=== PATIENT | female | born 2000 | race Two or more races ===

== ENCOUNTER 2025-05-30 18:35 | Emergency (ER) | payer OTHER ==
[~2025-05-30] VITALS: Ht 165.1 cm; Wt 72.7 kg
--- NOTE | 2025-05-30 19:42 | ED.PDOC ---
History of Present Illness HPI Comments 24-year-old female, with no significant medical history, presents spouse and child with multiple complaints. Primary chief complaint is for right breast lump, with the associated sharp pain, which she has been having for over 1 week, following initial, unprovoked and atraumatic onset. Also endorses on having congestion for over the past 2 weeks, left eye redness for one-week, and fever, chills, and body aches onset today. Only medication she takes, currently, are iron supplements. No endorsement of any recent injuries, travel, sick contact, or further pertinent history events. Denial of any wound abscess, discharge, or further associated symptoms. REVIEW OF SYSTEMS: General: Fever, chills, body aches, no fatigue HEENT: Congestion. Left eye redness. No sore throat, no earache, no neck pain. Cardiac: No chest pain. No palpitations. Lungs: No shortness of breath, no cough. GI: No nausea, no vomiting, no diarrhea, no constipation, no abdominal pain : No dysuria, frequency, or urgency. No hematuria. Musculoskeletal: Body aches. No joint pain , no joint swelling, no extremity edema. Skin: No rash, no itching. Neuro: No headache, no dizziness, no weakness REVIEW OF SYSTEMS: General: No fever, no chills, or fatigue HEENT: No sore throat, no earache, no congestion, no neck pain. Cardiac: No chest pain. No palpitations. Lungs: No shortness of breath, no cough. GI: No nausea, no vomiting, no diarrhea, no constipation, no abdominal pain : No dysuria, frequency, or urgency. No hematuria. Musculoskeletal: No joint pain , no joint swelling, no extremity edema. Skin: Right breast warmth and tender; right breast is more firmer compared to the left breast, with no palpable abscess. No rash, no itching. Neuro: No headache, no dizziness, no weakness Chief Complaint: Breast pain Time Seen by MD: 19:00 Reviewed Notes: Nurses Notes, Medications, Allergies Allergies: Coded Allergies: Amoxicillin (Verified Allergy, Unknown, 05/30/25) Clavulanic Acid (Verified Allergy, Unknown, 05/30/25) Information Source: Patient Mode of Arrival: Ambulatory Severity: Moderate Past Medical History PAST MEDICAL HISTORY: Denies Surgical History: Denies all surgeries BUNDLE HELPER History: No Pertinent BUNDLE HELPER History Family History Family History: Unknown Social History Smoker: Non-Smoker Alcohol: Denies ETOH Use Drugs: Denies Drug Use Lives In: Home Was a procedure done? Was a procedure done?: No Differential Dx Considerations may include: Viral illness, pharyngitis, otitis media, bacteremia, pneumonia, UTI, meningitis, sepsis, abscess, cellulitis, dermatitis, conjunctivitis, other X-Ray, Labs, Meds, VS Vital Signs Date Time Temp Pulse Resp B/P (MAP) Pulse Ox O2 Delivery O2 Flow Rate FiO2 05/30/25 21:12 100.0 110 14 108/63 (78) 95 100.0 05/30/25 20:51 100.9 05/30/25 19:55 101.4 05/30/25 19:49 101.4 117 19 118/97 (104) 97 101.4 05/30/25 19:49 117 19 97 Room Air 05/30/25 18:36 99.7 109 16 133/78 98 99.7 Lab Test 05/30/25 19:27 05/30/25 19:20 05/30/25 00:00 Range/Units White Blood Count 7.8 4.4-10.8 10^3/uL Red Blood Count 4.63 4.0-5.20 10^6/uL Hemoglobin 12.8 12.2-16.2 g/dL Hematocrit 37.9 36.0-46.0 % Mean Corpuscular Volume 81.8 80.0-100.0 fL Mean Corpuscular Hemoglobin 27.6 L 28.0-32.0 pg Mean Corpuscular Hemoglobin Concent 33.7 32.0-36.0 g/dL Red Cell Distribution Width 15.2 H 11.8-14.3 % Platelet Count 321 140-450 10^3/uL Mean Platelet Volume 8.7 6.9-10.8 fL Neutrophils (%) (Auto) 69.3 37.0-80.0 % Lymphocytes (%) (Auto) 22.1 10.0-50.0 % Monocytes (%) (Auto) 5.5 0.0-12.0 % Eosinophils (%) (Auto) 2.5 0.0-7.0 % Basophils (%) (Auto) 0.6 0.0-2.0 % Neutrophils # (Auto) 5.4 1.6-8.6 10 ^3/uL Lymphocytes # (Auto) 1.7 0.4-5.4 10 ^3/uL Monocytes # (Auto) 0.4 0-1.3 10 ^3/uL Eosinophils # (Auto) 0.2 0-0.8 10 ^3/uL Basophils # (Auto) 0 0-0.2 10 ^3/uL Nucleated Red Blood Cells 0.0 % Sodium Level 141 136-145 mmol/L Potassium Level 3.6 3.5-5.1 mmol/L Chloride Level 102 98-107 mmol/L Carbon Dioxide Level 27 20-31 mmol/L Anion Gap 12 5-15 Blood Urea Nitrogen 10 9-23 mg/dL Creatinine 0.98 0.550-1.02 mg/dL Glomerular Filtration Rate Calc 83 >90 mL/min BUN/Creatinine Ratio 10.2 10.0-20.0 Serum Glucose 96 74-106 mg/dL Calcium Level 9.2 8.7-10.4 mg/dL Influenza Type A Antigen Negative Negative Influenza Type B Antigen Negative Negative SARS-CoV-2 Antigen (Rapid) Negative NEGATIVE Current Medications Medications (Trade) Dose Ordered Sig/Geovanny Route Start Time Stop Time Status Last Admin Acetaminophen (Tylenol Tablet Or Capsule) 1,000 mg ONCE ONCE PO 05/30/25 20:00 05/30/25 20:06 DC 05/30/25 19:55 Time of 1ST Reevaluation: 19:30 Reevaluation 1ST: Unchanged Patient Education/Counseling: Need For Follow Up Family Education/Counseling: Need For Follow Up SEPSIS Sepsis Screen Date sepsis recognized/suspect: May 30, 2025 Time Sepsis recognized/suspect: 1835 Recent Procedure: No On Antibiotic Therapy: No Respiratory Rate >20: No Heart Rate >90: Yes Temp<36 C (96.8 F) or >38.3 C: No SBP <90 or MAP <65 mmHG: No New Acute Mental Status Change: No Is the patient on CPAP, BIPAP,: No Physician Orders R Breast Ultrasound (05/30/25 19:20) Vital Signs Date Time Temp Pulse Resp B/P (MAP) Pulse Ox O2 Delivery O2 Flow Rate FiO2 05/30/25 21:12 100.0 110 14 108/63 (78) 95 100.0 05/30/25 20:51 100.9 05/30/25 19:55 101.4 05/30/25 19:49 101.4 117 19 118/97 (104) 97 101.4 05/30/25 19:49 117 19 97 Room Air 05/30/25 18:36 99.7 109 16 133/78 98 99.7 Laboratory Tests Test 05/30/25 19:27 White Blood Count 7.8 10^3/uL (4.4-10.8) Medications Medications Dose Ordered Sig/Geovanny Route Start Time Stop Time Status Last Admin Dose Admin Acetaminophen 1,000 mg ONCE ONCE PO 05/30/25 20:00 05/30/25 20:06 DC 05/30/25 19:55 Departure 1 Departure Time of Disposition: : Impression: Primary Impression: Mastitis Additional Impression: Viral syndrome Disposition: HOME / SELF CARE / HOMELESS Condition: Stable Additional Instructions: ED DISCHARGE INSTRUCTIONS Instructions: Please read all instructions provided in this packet carefully. Follow the instructions below for treating mastitis. If your symptoms do not improve with in the next few days follow up with the primary care provider for re-evaluation. You may need antibiotics at that time. Although you have been discharged from the Emergency Department, this does not mean that you have a "clean bill of health". No definitive diagnosis for your symptoms has been made today. It is possible that you are in the process of developing a serious illness. This is why you must return to the ED without fail if any new or worsening symptoms (especially if your symptoms include chest pain, trouble breathing, abdominal pain, fever, headache, confusion, trouble seeing, or trouble walking) It is also very important that you see a primary care provider (PCP) within the next 3-5 days to follow up.. If you are unable to get an appointment, return to the ED for re-evaluation. Mastitis: Care Instructions Your Care Instructions Mastitis is an inflammation of the breast. It most often occurs while (sometimes called chestfeeding). But it can happen anytime. Mastitis can be caused by poor milk flow from the breast. When milk builds up in a breast, it can cause swelling and inflammation. Sometimes the tissue can become infected with bacteria. Cracked or irritated nipples can make infection more likely. Regular , self-care, and sometimes antibiotics are used to treat mastitis. If mastitis is not treated, a pocket of pus may form in the breast and need to be drained. Follow-up care is a morgan part of your treatment and safety. Be sure to make and go to all appointments, and call your doctor if you are having problems. It's also a good idea to know your test results and keep a list of the medicines you take. How can you care for yourself? If your doctor or critical care transport nurse prescribed antibiotics, take them as directed. Do not stop taking them just because you feel better. You need to take the full course of antibiotics. If you are , continue to regularly breastfeed when your baby is hungry. If you use a breast pump, continue to pump when you need to. But avoid pumping extra. It may cause more inflammation. These tips may help. Breastfeed on both sides. Try to start on the sore side. If you need to start on the other side, be sure to switch and breastfeed from the affected side as well. Hand-express a small amount of breast milk before if your breasts are too full with milk. This will make your breasts less full and may make it easier for your baby to latch on to your breast. If it's too painful to breastfeed at all, try pumping or hand expressing your milk. Take an [id number] pain medicine, such as acetaminophen (Tylenol) or ibuprofen (Advil, Motrin) to relieve pain and fever. Read and follow all instructions on the label. Do not take two or more pain medicines at the same time unless the doctor or critical care transport nurse told you to. Many pain medicines have acetaminophen, which is Tylenol. Too much acetaminophen (Tylenol) can be harmful. Try using a cold compress on your breast to reduce pain and swelling. Put ice or a cold pack on the area for 10 to 20 minutes at a time. Put a thin cloth between the ice and your skin. Avoid massaging the breast. This can cause tissue injury and worsen swelling. Wear a supportive bra that fits. Rest as much as possible. Drink extra fluids. Take care of sore or cracked nipples. Let your nipples air dry after feeding. Try letting some breast milk dry on your nipples. Avoid using saline soaks or castor oil on your affected breast or sore nipples. Ask your doctor before you use any other products on your breasts. Try applying a nonstick first-aid pad to your breast after each feeding. Sometimes, a blocked nipple pore, called a milk blister (or bleb) happens. A milk blister looks like a white dot on your nipple that can be painful. If a milk blister is causing you pain, it may help to place a warm, wet washcloth over the blister before or pumping. When should you call for help? Call your doctor or critical care transport nurse now or seek immediate medical care if: You have worse symptoms of breast inflammation or infection, such as: Increased pain, swelling, warmth, redness, or a color change on your breast. Red streaks leading from a breast. Pus draining from a breast. A fever. Watch closely for changes in your health, and be sure to contact your doctor or critical care transport nurse if: You do not get better as expected. You have trouble with your baby's latch or . You feel sad, anxious, or hopeless for more than a few days Credits for Mastitis: Care Instructions Current as of: January 11, 2025 Author: [employer] Staff Clinical Review Board All [employer] education is reviewed by a team that includes physicians, nurses, advanced practitioners, registered dieticians, and other healthcare professionals. Discharged With: Spouse Comments MDM: Patient well-appearing, nontoxic. Advised prompt follow-up with PCP, return to the ED with any new, worsening or concerning symptoms. Critical Care Note Critical Care Time?: No Stability Stability form required: No Heart Score Heart Score: Heart Score Response (Comments) Value History N/A 0 EKG N/A 0 Age N/A 0 Risk Factors N/A 0 Troponin N/A 0 Total 0 I personally scribed for TATE SEBASTIAN MD ([email or web address]) on 05/30/25 at 19:42. Electronically submitted by Jong Blancas ([email or web address]). TATE SEBASTIAN MD May 30, 2025 19:42
[2025-05-30 19:43] LABS: Hematocrit 37.9 % (36.0-46.0); Hemoglobin 12.8 g/dL (12.2-16.2); Mean Corpuscular Hemoglobin 27.6 pg (28.0-32.0); Mean Corpuscular Volume 81.8 fL (80.0-100.0); Nucleated Red Blood Cells % 0.0 %
[2025-05-30 19:52] LABS: Potassium 3.6 mmol/L (3.5-5.1); Sodium 141 mmol/L (136-145)
[2025-05-30 19:53] LABS: Anion Gap 12 (5-15); Calcium 9.2 mg/dL (8.7-10.4); Carbon Dioxide 27 mmol/L (20-31); Chloride 102 mmol/L (98-107)
[2025-05-30] MEDS: ACETAMINOPHEN 500 MG TAB or CAP PO ONE (19:55)
[2025-05-30 19:58] LABS: BUN/Creatinine Ratio 10.2 (10.0-20.0); Blood Urea Nitrogen 10 mg/dL (9-23); Glucose 96 mg/dL (74-106)
[2025-05-30 20:35] LABS: COVID19 ANTIGEN SOFIA FIA NEGATIVE (NEGATIVE)
--- NOTE | 2025-05-30 21:00 | DVH ---
US OF THE RIGHT BREAST INDICATION: breast pain r/o abscess TECHNIQUE: All 4 quadrants, subareolar region and axillary region of the RIGHT breast were evaluated with ultrasound COMPARISON: Non. FINDINGS: Ultrasound of the lower outer quadrant was performed No mass or focal fluid collection. Right axilla appears unremarkable. IMPRESSION: There is no sonographic evidence for abscess.
[2025-05-30 21:12] VITALS: BP 108/63; PULSE 110; RESP 14; TEMP 100; O2SAT 95
== END 2025-05-30 21:39 | disposition home or self-care (01) ==
LOC: ER 18:38
DX: N61.0 Mastitis without abscess (principal); B34.9 Viral infection, unspecified; Z88.0 Allergy status to penicillin; Z20.822 Contact with and (suspected) exposure to COVID-19
CPT/HCPCS: 36415; 76642; 80048; 85025; 87426; 87804